=== PATIENT | female | born 1945 | race Caucasian/White ===

== ENCOUNTER 2020-04-21 05:38 | Observation (INO) ==
--- NOTE | 2020-03-19 13:01 | PAT Medication Instructions ---
Medication Instructions Date of Service March 19, 2020 Home Medications acetaminophen [Tylenol Arthritis] 1,300 mg PO Q12H aspirin [Aspir-81] 81 mg PO QAM atorvastatin 40 mg PO HS [id number]-uvc-sko-ivrw-rclu-pec [Fiber 6] 2 tab PO BID calcium carbonate-vitamin D3 [Calcium 600 + D(3)] 1 cap PO BID carvedilol 6.25 mg PO BID cetirizine [Allergy Relief (cetirizine)] 10 mg PO DAILY PRN cholecalciferol (vitamin D3) 125 mcg PO QAM multivitamin 1 cap PO QAM nitroglycerin [Nitrostat] 0.4 mg SUBLINGUAL UD PRN olmesartan 20 mg PO QAM oxybutynin chloride 5 mg PO QAM trazodone 50 mg PO HS PRN vitamin B complex 1 tab PO QAM Continue as directed nitroglycerin [Nitrostat] 0.4 mg SUBLINGUAL UD PRN DO NOT take the morning of surgery nhkr-tkk-iaq-aam-exoi-okiz-pec [Fiber 6] 2 tab PO BID calcium carbonate-vitamin D3 [Calcium 600 + D(3)] 1 cap PO BID cetirizine [Allergy Relief (cetirizine)] 10 mg PO DAILY PRN cholecalciferol (vitamin D3) 125 mcg PO QAM multivitamin 1 cap PO QAM olmesartan 20 mg PO QAM oxybutynin chloride 5 mg PO QAM vitamin B complex 1 tab PO QAM Take morning of surgery With a small sip of water, OTHERWISE NOTHING TO EAT OR DRINK AFTER MIDNIGHT: acetaminophen [Tylenol Arthritis] 1,300 mg PO Q12H (if needed, may be taken up to four hours before surgery) aspirin [Aspir-81] 81 mg PO QAM carvedilol 6.25 mg PO BID Take evening before surgery acetaminophen [Tylenol Arthritis] 1,300 mg PO Q12H atorvastatin 40 mg PO HS cgns-zab-znu-bmu-ceuh-pziy-pec [Fiber 6] 2 tab PO BID calcium carbonate-vitamin D3 [Calcium 600 + D(3)] 1 cap PO BID carvedilol 6.25 mg PO BID cetirizine [Allergy Relief (cetirizine)] 10 mg PO DAILY PRN (if needed) trazodone 50 mg PO HS PRN (if needed) Other Notes If you have any questions please call us at [phone] or [phone] or [phone] or [phone]
--- NOTE | 2020-03-22 13:35 | Anesthesiology Consultation ---
Date of Service March 22, 2020 Assessment & Plan (1) Encounter for pre-operative examination: COVID Status: As of 03/22 assessment, patient denies travel to endemic area (she did attend a large indoor wedding on 03/13 and no one wore masks, but to her knowledge no attendees have gotten sick), known exposure/sick contacts, or symptoms of COVID19. Patient instructed that they and their household members must follow strict social distancing guidelines, wear a mask in public and avoid travel for 14 days prior to surgery. She was invited to another wedding to be held 04/07, again a large group of people -- she was discouraged from attending this gathering and states she will not go. Preoperative COVID19 testing to be completed prior to surgery per surgeon's arrangements. Patient made aware to self-isolate as much as possible between COVID testing and surgery. Chart Review Chart Review: Acceptable Risk for Surgery (Pending surgeon-ordered PCP and cardio clearances and confirmed ekg) and Patient seen in Pre Admission Testing Teaching & Discussion Instructed NPO after midnight before surgery, except medications with 15 cc of water. Medication instructions provided according to the PAT guidelines. History Surgery Operation Date: 04/21/20 07:00 Proposed Procedures p left Total Knee Arthroplasty - Clinton Mcdermott DO Height/Weight Height: 5 ft 4 in Weight: 66.2 kg Allergies Allergy/AdvReac Type Severity Reaction Status Date / Time animal dander Allergy Unknown HAY FEVER Verified 03/12/20 07:50 apple Allergy Unknown NASAL Verified 03/12/20 07:50 CONGESTION banana Allergy Unknown NASAL Verified 03/12/20 07:50 CONGESTION No Known Drug Allergies Allergy Unknown NKDA Verified 03/12/20 07:50 shellfish derived Allergy Unknown NASAL Verified 03/12/20 07:50 CONGESTION tomato Allergy Unknown NASAL Verified 03/12/20 07:50 CONGESTION Medications Home Medications Medication Instructions Recorded Confirmed Last Taken acetaminophen [Tylenol Arthritis] 1,300 mg PO Q12H 03/12/20 03/12/20 Unknown aspirin [Aspir-81] 81 mg PO QAM 03/12/20 03/12/20 Unknown atorvastatin 40 mg PO HS 03/12/20 03/12/20 Unknown qbwo-kgj-nev-mjd-iwja-vndg-pec 2 tab PO BID 03/12/20 03/12/20 Unknown [Fiber 6] calcium carbonate-vitamin D3 1 cap PO BID 03/12/20 03/12/20 Unknown [Calcium 600 + D(3)] carvedilol 6.25 mg PO BID 03/12/20 03/12/20 Unknown cetirizine [Allergy Relief 10 mg PO DAILY PRN 03/12/20 03/12/20 Unknown (cetirizine)] cholecalciferol (vitamin D3) 125 mcg PO QAM 03/12/20 03/12/20 Unknown [Vitamin D3] multivitamin 1 cap PO QAM 03/12/20 03/12/20 Unknown nitroglycerin [Nitrostat] 0.4 mg SUBLINGUAL UD PRN 03/12/20 03/12/20 Unknown olmesartan 20 mg PO QAM 03/12/20 03/12/20 Unknown oxybutynin chloride 5 mg PO QAM 03/12/20 03/12/20 Unknown trazodone 50 mg PO HS PRN 03/12/20 03/12/20 Unknown vitamin B complex 1 tab PO QAM 03/12/20 03/12/20 Unknown omeprazole 20 mg PO QAM 03/22/20 03/22/20 Unknown Past Medical History Medical History CAD (coronary artery disease) s/p [place] with FILIPE x 1 to OM1 2016 GERD (gastroesophageal reflux disease) Hiatal hernia SMALL Hyperlipidemia Hypertension Increased urinary frequency Myocardial Infarction 2016 F/U DR MANUEL Osteoarthritis Syncope HX-F/U PCP, HAS HAD LOTS OF TESTING, ALL NEGATIVE-NO DIAGNOSIS, HAS BEEN MANY MONTHS SINCE SHE HAD AN INCIDENT. Exercise / Class Metabolic Activity II 4-5 Yardwork/Stairs/Walk up hill (Denies CP or SOB with 1 FOS, does at home) Past Surgical History Surgical History H/O eye surgery RIGHT MUSCLE SX History of appendectomy History of cardiac cath 1 STENT KAT DENNEY 2016 History of cataract surgery R/L History of cholecystectomy History of colonoscopy History of esophagogastroduodenoscopy (EGD) History of hysterectomy OVARIES REMAIN History of repair of rotator cuff R/L History of total knee replacement RIGHT Past Anesthesia History No Hx of Anesthesia Complications and No Family Hx of Anesthesia Complications History of PONV No Hx of PONV and No Hx of Motion Sickness Social History Smoking Status: Never smoker Do You Dip or Chew Tobacco: No Hx Alcohol Use: Yes Alcohol type: wine alcohol intake frequency: a few times a month (once per week max) Hx Substance Use: No Review of Systems Pt denies any recent chest pain, shortness of breath, palpitations, cough, fever, URI. +uncontrolled acid reflux. Physical Exam Vital Signs BP: 112/73 P: 72bpm SPO2: 96% RA T: 97.8 F R: 16 ENMT Mouth: + dental bridge (upper front teeth (5)) and + chipped teeth (one broken filling); no loose teeth Thyromental Distance: > or= 3.5 Finger Breadths Mallampati Class: II Neck normal visual inspection; neck extension not limited Respiratory normal respiratory effort Auscultation: lungs clear to auscultation bilaterally Cardiovascular Rate/Rhythm: regular rate and regular rhythm Heart Sounds: + murmur (I/) Extremities: no edema Testing Laboratory Results 03/22/20 13:39 03/22/20 13:39 PT 11.4 Seconds (9.0-12.0) 03/22/20 13:39 INR 1.1 (0.9-1.1) 03/22/20 13:39 APTT 30.9 Seconds (21.0-31.0) 03/22/20 13:39 Hemoglobin A1c 5.6 % (4.5-5.6) 03/22/20 13:39 Urine Color Yellow 03/22/20 Unknown Urine Appearance Clear (Clear) 03/22/20 Unknown Urine pH 6.5 (4.5-7.5) 03/22/20 Unknown Ur Specific [place] 1.009 (1.000-1.030) 03/22/20 Unknown Urine Protein Negative (Negative) 03/22/20 Unknown Urine Glucose (UA) Negative (Negative) 03/22/20 Unknown Urine Ketones Negative (Negative) 03/22/20 Unknown Urine Nitrite Negative (Negative) 03/22/20 Unknown Ur Leukocyte Esterase Trace (Negative) H 03/22/20 Unknown Urine WBC (Auto) 0 /hpf (0-5) 03/22/20 Unknown Urine RBC (Auto) 5-10 /hpf (0-4) H 03/22/20 Unknown U Hyaline Cast (Auto) 0 /lpf (0-5) 03/22/20 Unknown U Epithel Cells (Auto) 0-5 /lpf (0-5) 03/22/20 Unknown Urine Bacteria (Auto) Negative (Negative) 03/22/20 Unknown Blood Type O Positive 03/22/20 13:39 Antibody Screen NEGATIVE 03/22/20 13:39 Electrocardiogram Date: 03/22/20 Findings: + SB @ (57BPM) and + no change from (2016) *unconfirmed. Chest X-Ray Date: 03/22/20 Findings: + NAD Stress Test Date: 12/31/15 Type: nuclear Findings: + achieved max HR (87% MPHR) No ischemic STT wave abnormalities with stress. Rare PVCs. No chest pain. Normal dobutamine stress echocardiogram. LVH. Hypertension at rest and with stress.
--- NOTE | 2020-03-22 14:10 | XRay Report ---
XR chest Pre-admission PA/Lat HISTORY: 74 years-old Female pat preoperative exam. No acute chest complaints COMPARISON: Chest radiograph 05/01/2016 TECHNIQUE: PA and lateral views of the chest FINDINGS: Cardiomediastinal and hilar silhouettes are within normal limits. Coronary arterial stent. Calcified plaque of the thoracic aortic arch. Minimal biapical pleural-parenchymal scarring. No pneumothorax, p leural effusion, airspace consolidation or overt pulmonary edema. Degenerative changes of the shoulde rs and spine. Cholecystectomy. IMPRESSION: No acute process. ACT 112: Negative or not required by law. The above report was generated using voice recognition software. It may contain grammatical, syntax o r spelling errors. Electronically signed by: Chay Elena M.D. 03/22/2020 2:09 PM
[2020-03-22 14:33] LABS: Basophils # (auto) 0.06 K/uL (0-0.2); Basophils % (auto) 0.6 %; Eosinophils # (auto) 0.51 K/uL (0-0.5); Eosinophils % (auto) 5.4 %; Hematocrit (blood only) 43.4 % (37-47); Hemoglobin 14.6 g/dL (12.0-16.0); Immature Granulocytes # (auto) 0.03 K/uL (0.00-0.02); Immature Granulocytes % (auto) 0.3 %; Lymphocytes # (auto) 2.47 K/uL (1.2-3.4); Lymphocytes % (auto) 26.1 %; Mean Corpuscular Hemoglobin 32.4 pg (25-34); Mean Corpuscular Hgb Conc 33.6 g/dL (32-36); Mean Corpuscular Volume 96.2 fL (80-100); Mean Platelet Volume 9.6 fL (7.4-10.4); Monocytes % (auto) 7.4 %; Neutrophils # (auto) 5.71 K/uL (1.4-6.5); Neutrophils % (auto) 60.2 %; Platelet Count 368 K/uL (130-400); RDW Coefficient of Variation 12.5 % (11.5-14.5); RDW Standard Deviation 43.7 fL (36.4-46.3); Red Blood Count 4.51 M/uL (4.2-5.4); White Blood Count 9.48 K/uL (4.8-10.8)
[2020-03-22 14:39] LABS: Estimated Average Glucose 114 mg/dl; Hemoglobin A1C 5.6 % (4.5-5.6)
[2020-03-22 14:41] LABS: Albumin Level 3.6 gm/dl (3.4-5.0); BUN Creatinine Ratio 19.5 (10-20); Calcium 10.1 mg/dl (8.5-10.1); Creatinine Clr Calc Pharmacy 54.2 ml/min; Est GFR (African American) 78.8
[2020-03-22 14:45] LABS: INR 1.1 (0.9-1.1); Partial Thromboplastin Ratio 1.1; Partial Thromboplastin Time 30.9 Seconds (21.0-31.0); Prothrombin Time 11.4 Seconds (9.0-12.0)
[2020-03-22 14:56] LABS: Appearance Urine Clear (Clear); Bacteria Urine Automated Negative (Negative); Bilirubin Urine Negative (Negative); Blood Urine Trace (Negative); Cast Urine Automated 0 /lpf (0-5); Color Urine Yellow; Epithelial Cell Urine Auto 0-5 /lpf (0-5); Glucose Urine UA Negative (Negative); Ketones Urine Negative (Negative); Leukocyte Esterase Urine Trace (Negative); Nitrite Urine Negative (Negative); Protein Urine Negative (Negative); Specific Gravity Urine 1.009 (1.000-1.030); Urobilinogen Urine Negative (Negative); WBC Urine Automated 0 /hpf (0-5); pH Urine 6.5 (4.5-7.5)
--- NOTE | 2020-03-23 14:00 | History & Physical Report ---
Date of Service March 23, 2020 date of surgery: 04-21-20 procedure: left total knee replacement Assessment & Plan (1) Arthritis of knee, left: Risks and benefits of procedure discussed in detail today, patient would like to proceed with a left total knee replacement at [facility] as scheduled. will obtain cardiac clearance from Dr Fajardo prior to surgery as well as obtain PATs at [facility]. She will check with her heading repairer if ok to use Celebrex post op which really helped her last time. Will place on ASA 81mg po bid x 1 month post op, f/u 2 weeks post op for routine post-operative care and x-ray, sooner if having any problems. will make arrangements for HHPT at the time of discharge. At this point in time, has failed conservative measures and would like to proceed with surgical intervention. The risks and benefits have been discussed including, but not limited to, risk of infection, nerve injury, stiffness, loss of motion, failure to improve, etc. Reasonable outcomes and options of treatment were discussed. An explanation of appropriate alternatives to the procedure that may be advantageous were discussed and their risks and benefits, as well as the risks and benefits of not proceeding with treatment. I offered to answer any additional inquiries concerning the treatment involved. All the patient's questions were answered. The patient is agreeable, understanding of the treatment plan and alternatives, and wishes to proceed with the treatment plan. History of Present Illness Chief Complaint: left knee pain Primary Care Provider: Jazmin Mcadams [place] is a 74 year old female who complains of left knee pain, presents for pre-op evaluation prior to a left total knee replacement by dr Mcdermott at [facility]. she complains of pain, decreased range of motion, instability and stiffness in her left knee. she states that the symptoms have been chronic and non-traumatic. Currently the patient states that the symptoms are moderate-severe. The pain is described as aching, sharp and throbbing. The symptoms occur continuously. The symptoms are aggravated by ascending stairs, daily activities, first steps while awake walking. Prior NSAIDs include Ibuprofen and Aleve. she has been treated with previous cortisone and visco injections in the past without much relief. Allergies Allergy/AdvReac Type Severity Reaction Status Date / Time animal dander Allergy Unknown HAY FEVER Verified 03/12/20 07:50 apple Allergy Unknown NASAL Verified 03/12/20 07:50 CONGESTION banana Allergy Unknown NASAL Verified 03/12/20 07:50 CONGESTION No Known Drug Allergies Allergy Unknown NKDA Verified 03/12/20 07:50 shellfish derived Allergy Unknown NASAL Verified 03/12/20 07:50 CONGESTION tomato Allergy Unknown NASAL Verified 03/12/20 07:50 CONGESTION Home Medications Home Medications Medication Instructions Recorded Confirmed Type acetaminophen [Tylenol Arthritis] 1,300 mg PO Q12H 03/12/20 03/12/20 History aspirin [Aspir-81] 81 mg PO QAM 03/12/20 03/12/20 History atorvastatin 40 mg PO HS 03/12/20 03/12/20 History weic-rag-rnj-qek-edst-ypxg-pec 2 tab PO BID 03/12/20 03/12/20 History [Fiber 6] calcium carbonate-vitamin D3 1 cap PO BID 03/12/20 03/12/20 History [Calcium 600 + D(3)] carvedilol 6.25 mg PO BID 03/12/20 03/12/20 History cetirizine [Allergy Relief 10 mg PO DAILY PRN 03/12/20 03/12/20 History (cetirizine)] cholecalciferol (vitamin D3) 125 mcg PO QAM 03/12/20 03/12/20 History [Vitamin D3] multivitamin 1 cap PO QAM 03/12/20 03/12/20 History nitroglycerin [Nitrostat] 0.4 mg SUBLINGUAL UD PRN 03/12/20 03/12/20 History olmesartan 20 mg PO QAM 03/12/20 03/12/20 History oxybutynin chloride 5 mg PO QAM 03/12/20 03/12/20 History trazodone 50 mg PO HS PRN 03/12/20 03/12/20 History vitamin B complex 1 tab PO QAM 03/12/20 03/12/20 History omeprazole 20 mg PO QAM 03/22/20 03/22/20 History Past Med/Surg History Medical History CAD (coronary artery disease) s/p [place] with FILIPE x 1 to OM1 2016 GERD (gastroesophageal reflux disease) Hiatal hernia SMALL Hyperlipidemia Hypertension Increased urinary frequency Myocardial Infarction 2016 F/U DR MANUEL Osteoarthritis Syncope HX-F/U PCP, HAS HAD LOTS OF TESTING, ALL NEGATIVE-NO DIAGNOSIS, HAS BEEN MANY MONTHS SINCE SHE HAD AN INCIDENT. Surgical History H/O eye surgery RIGHT MUSCLE SX History of appendectomy History of cardiac cath 1 STENT PH ОЛЕГ 2017 History of cataract surgery R/L History of cholecystectomy History of colonoscopy History of esophagogastroduodenoscopy (EGD) History of hysterectomy OVARIES REMAIN History of repair of rotator cuff R/L History of total knee replacement RIGHT Social History Smoking Status: Never smoker Second Hand Exposure: Yes (SPOUSE SMOKED); Do You Dip or Chew Tobacco: No; Hx Alcohol Use: Yes Alcohol type: wine Hx Substance Use: No Preferred Language: Korean Communication Ability: Effective Bag Maker Required: No Beliefs That Will Affect Care: None Current Living Situation: Alone Other Information That Helps Us Care for You: No Feels Safe at Home: Yes Safety Concerns: Feels Safe At This Time Review of Systems Review of Systems: All systems reviewed & are unremarkable except as noted in HPI & below Constitutional: no fever, no chills and no sweats Respiratory: no cough and no dyspnea Cardiovascular: no chest pain, no dyspnea and no orthopnea Gastrointestinal: no abdominal pain, no nausea and no vomiting Musculoskeletal: as per Subjective / HPI Physical Exam Physical Exam: Ht: 5ft 4in Wt: 142lb BP: 128/70 Pulse: 68 Constitutional: WD/WN, vitals as above no acute distress Respiratory: normal respiratory effort, lungs clear to auscultation no respiratory distress, no labored breathing and does not use accessory muscles Cardiovascular: RRR, no murmur, no edema Gastrointestinal (Abdomen): normal bowel sounds, soft, nontender, no hepatospl enomegaly Musculoskeletal: Knee: + knee abnormal to inspection (left knee- ), + effusion (+1 effusion), + limited ROM of knee (ROM 0/5/115), + knee ROM with crepitation, + joint line tenderness (medial joint line) and + Micaela's sign positive; no deformity, no skin erythema, no ecchymosis, no valgus laxity, no varus laxity, anterior drawer test negative, Valeria's sign negative and pivot shift test negative Results & Data Results & Data ([facility]) Laboratory Results Laboratory Results WBC 9.48 K/uL (4.8-10.8) 03/22/20 13:39 RBC 4.51 M/uL (4.2-5.4) 03/22/20 13:39 Hgb 14.6 g/dL (12.0-16.0) 03/22/20 13:39 Hct 43.4 % (37-47) 03/22/20 13:39 MCV 96.2 fL (80-100) 03/22/20 13:39 MCH 32.4 pg (25-34) 03/22/20 13:39 MCHC 33.6 g/dL (32-36) 03/22/20 13:39 RDW Std Deviation 43.7 fL (36.4-46.3) 03/22/20 13:39 RDW Coeff of Isiah 12.5 % (11.5-14.5) 03/22/20 13:39 Plt Count 368 K/uL (130-400) 03/22/20 13:39 MPV 9.6 fL (7.4-10.4) 03/22/20 13:39 Immature Gran % (Auto) 0.3 % 03/22/20 13:39 Neut % (Auto) 60.2 % 03/22/20 13:39 Lymph % (Auto) 26.1 % 03/22/20 13:39 [place] % (Auto) 7.4 % 03/22/20 13:39 Eos % (Auto) 5.4 % 03/22/20 13:39 Baso % (Auto) 0.6 % 03/22/20 13:39 Neut # (Auto) 5.71 K/uL (1.4-6.5) 03/22/20 13:39 Lymph # (Auto) 2.47 K/uL (1.2-3.4) 03/22/20 13:39 [place] # (Auto) 0.70 K/uL (0.11-0.59) H 03/22/20 13:39 Eos # (Auto) 0.51 K/uL (0-0.5) H 03/22/20 13:39 Baso # (Auto) 0.06 K/uL (0-0.2) 03/22/20 13:39 Immature Gran # (Auto) 0.03 K/uL (0.00-0.02) H 03/22/20 13:39 PT 11.4 Seconds (9.0-12.0) 03/22/20 13:39 INR 1.1 (0.9-1.1) 03/22/20 13:39 APTT 30.9 Seconds (21.0-31.0) 03/22/20 13:39 PTT Ratio 1.1 03/22/20 13:39 Sodium 142 mmol/L (136-145) 03/22/20 13:39 Potassium 4.0 mmol/L (3.5-5.1) 03/22/20 13:39 Chloride 108 mmol/L (98-107) H 03/22/20 13:39 Carbon Dioxide 27 mmol/L (21-32) 03/22/20 13:39 Anion Gap 6.0 (3-11) 03/22/20 13:39 BUN 17 mg/dl (7-18) 03/22/20 13:39 Creatinine 0.84 mg/dl (0.6-1.2) 03/22/20 13:39 Est Cr Clr Drug Dosing 54.2 ml/min 03/22/20 13:39 Est GFR ( Amer) 78.8 03/22/20 13:39 Est GFR (Non-Af Amer) 68.0 03/22/20 13:39 BUN/Creatinine Ratio 19.5 (10-20) 03/22/20 13:39 Glucose 117 mg/dl (70-99) H 03/22/20 13:39 Estimat Average Glucose 114 mg/dl 03/22/20 13:39 Hemoglobin A1c 5.6 % (4.5-5.6) 03/22/20 13:39 Calcium 10.1 mg/dl (8.5-10.1) 03/22/20 13:39 Albumin 3.6 gm/dl (3.4-5.0) 03/22/20 13:39 Urine Color Yellow 03/22/20 Unknown Urine Appearance Clear (Clear) 03/22/20 Unknown Urine pH 6.5 (4.5-7.5) 03/22/20 Unknown Ur Specific [place] 1.009 (1.000-1.030) 03/22/20 Unknown Urine Protein Negative (Negative) 03/22/20 Unknown Urine Glucose (UA) Negative (Negative) 03/22/20 Unknown Urine Ketones Negative (Negative) 03/22/20 Unknown Urine Blood Trace (Negative) H 03/22/20 Unknown Urine Nitrite Negative (Negative) 03/22/20 Unknown Urine Bilirubin Negative (Negative) 03/22/20 Unknown Urine Urobilinogen Negative (Negative) 03/22/20 Unknown Ur Leukocyte Esterase Trace (Negative) H 03/22/20 Unknown Urine WBC (Auto) 0 /hpf (0-5) 03/22/20 Unknown Urine RBC (Auto) 5-10 /hpf (0-4) H 03/22/20 Unknown U Hyaline Cast (Auto) 0 /lpf (0-5) 03/22/20 Unknown U Epithel Cells (Auto) 0-5 /lpf (0-5) 03/22/20 Unknown Urine Bacteria (Auto) Negative (Negative) 03/22/20 Unknown Blood Type O Positive 03/22/20 13:39 Antibody Screen NEGATIVE 03/22/20 13:39 Diagnostic Findings Left Knee X-ray 02/20/20 confirms degenerative changes to the left knee, greatest medial compartments and patellofemoral joint, showing joint space narrowing, osteophyte formation and subchondral sclerosis. no acute bony pathology noted.
--- NOTE | 2020-03-23 21:50 | Electrocardiogram Report ---
Test Reason : Blood Pressure : / mmHG Vent. Rate : 057 BPM Atrial Rate : 057 BPM P-R Int : 172 ms QRS Dur : 084 ms QT Int : 412 ms P-R-T Axes : 073 047 051 degrees QTc Int : 401 ms Sinus bradycardia Otherwise normal ECG When compared with ECG of 28-MAY-2016 07:08, No significant change was found Confirmed by Juve Petersen ([id number]) on 03/23/2020 9:50:16 PM Referred By: Clinton Mcdermott Confirmed By:Juve Petersen
[2020-04-21] MEDS ORDERED: ACETAMINOPHEN 500 MG TAB PO SCH (06:00)
[2020-04-21] MEDS ORDERED: GABAPENTIN 300 MG CAP PO SCH (06:00)
[2020-04-21] MEDS ORDERED: TRANEXAMIC ACID 1,000 MG **IV Intra-op IV SCH (06:00)
[2020-04-21] MEDS ORDERED: dexAMETHasone 4 MG TAB PO SCH (06:00)
[2020-04-21] MEDS ORDERED: FAMOTIDINE 20 MG TAB PO SCH (06:00)
[2020-04-21] MEDS ORDERED: CEFAZOLIN 1000MG 1,000 MG/7.5 ML SYR IV SCH (06:00)
[2020-04-21] MEDS ORDERED: TRANEXAMIC ACID 1,000 MG **IV Pre-op IV SCH (06:00)
[2020-04-21] MEDS ORDERED: LR 500ML BOLUS, THEN 15ML/HR IV SCH (06:00)
[2020-04-21] MEDS ORDERED: CeleBREX 200 MG CAP PO SCH (06:00)
[2020-04-21] MEDS ORDERED: ROPIVACAINE 0.5% HCL/PF 150 MG, BUPIVACAINE 0.5% MPF 30 ML, EPINEPHrine 30MG/30ML (OR U... INSTIL SCH (06:00)
[2020-04-21] MEDS ORDERED: METOCLOPRAMIDE HCL 10 MG TABLET PO SCH (06:00)
[2020-04-21] MEDS ORDERED: BUPIVACAINE 0.5 % 5 MG/1 ML PF 10ML VIAL ONE (06:28)
[2020-04-21] MEDS ORDERED: fentaNYL citrate 100 MCG/2 ML VIAL ONE (06:39)
[2020-04-21] MEDS ORDERED: LIDOCAINE HCL 2% 2 ML VIAL/AMP(20MG/ML) INFIL ONE (06:39)
[2020-04-21] MEDS ORDERED: MIDAZOLAM HCL 1 MG/ML 2ML VIAL ONE (06:39)
[2020-04-21] MEDS ORDERED: PROPOFOL IV EMULSION 10 MG/ML 20 ML VIAL IV ONE (06:39)
--- NOTE | 2020-04-21 07:14 | History & Physical Bridge Note ---
Date of Service April 21, 2020 History & Physical Bridge Note I have examined the patient, reviewed the History & Physical and in the interval since the performance of the History & Physical I have noted the following changes of clinical significance: no changes noted
[2020-04-21] MEDS ORDERED: ORTHO JOINT ANESTHETIC ONE (07:43)
[2020-04-21] MEDS ORDERED: BACITRACIN INJ 50,000 UNIT VIAL ONE (07:43)
[2020-04-21] MEDS ORDERED: ePHEDrine sulfate 50 MG/ML AMP IV PRN (07:50)
[2020-04-21] MEDS ORDERED: ONDANSETRON INJ 2 MG/ML 2 ML VIAL IV PRN ×2 (07:50→11:21)
[2020-04-21] MEDS ORDERED: ATROPINE SULFATE 0.1 MG/ML 10ML SYR IV PRN (07:50)
[2020-04-21] MEDS ORDERED: fentaNYL citrate 100 MCG/2 ML VIAL IV PRN (07:50)
[2020-04-21] MEDS ORDERED: ePHEDrine sulfate 50 MG/ML SYR ONE (09:00)
[2020-04-21] MEDS ORDERED: PHENYLEPHRINE 100MCG/ML 5ML SYR ONE (09:00)
[2020-04-21] MEDS ORDERED: ONDANSETRON INJ 2 MG/ML 2 ML VIAL ONE (09:00)
--- NOTE | 2020-04-21 09:30 | Operative Report ---
Post Operative Report Pre & Post Diagnosis Operation Date: 04/21/20 08:20 Pre-Op Diagnosis: Osteoarthritis, Left Knee Post-Op Diagnosis: Osteoarthritis, Left Knee I identified the patient and participated in the time-out.: Yes Procedure Operation Date: 04/21/20 08:20 Actual Procedures p Left Total Knee Arthroplasty(Right) utilizing Mathews & NephStadius journey 2 patient matched total knee arthroplasty size 5 femur size 4 tibia size 10 polyethylene size 32 oval patella- Clinton Mcdermott DO Surgeon Clinton Mcdermott DO Armhole Baster Hand Ronnell BROWN Estimated Blood Loss 5 Findings Consistent with Post-Op Diagnosis Patient presents with severe end-stage DJD about the left knee no response to conservative management patient has subchondral sclerosis varus alignment marginal osteophytes eburnated [id number] moderate to large effusion subchondral cystic changes noted Specimens Bone and cartilage Anesthesia Type MAC Spinal Regional Complications none Disposition Accompanied Patient To Recovery: No Disposition: Recovery Room Indications Patient presents with severe end-stage DJD left knee no response to conservative management above intraoperative findings no time surgery. Patient is failed attempted conservative management clinic physical therapy anti-inflammatories relative rest activity modifications corticosteroid injections Visco supplementation Description of Procedure After proper prepping and draping of the left lower extremity anterior midline incision was made over the region of the extensor extensor mechanism after meticulous hemostasis was obtained and maintained in subcutaneous tissues a medial parapatellar incision was made The patella was subluxed lateralward the medial lateral gutter were cleaned from any hypertrophic synovitis and scar tissue of the distal femoral block was placed and the distal femoral osteotomy cut was made subsequently the chamfers anterior and posterior osteotomy cuts were made utilizing the 4-in-1 block the tibia was subsequently subluxed anteriorward medial and ateral meniscal remnants were excised in their entirety remnants of the anterior and posterior cruciate ligaments were excised in their entirety excellent exposure of the proximal tibia was obtained the tibial osteotomy guide was placed on the proximal tibial osteotomy cut was made once again the knee was irrigated with copious amounts of sterile saline solution the patella was subsequently everted lateralward thickened scar tissue around the patella was removed the patella was subsequently cut utilizing a freehand technique and was drilled prepared for final preparation and placement of patella socially flexion-extension gaps were checked and the equal and symmetric trials were placed to the appropriate femoral and tibial trials with poly-spacer being placed for equal flexion and extension gaps and full range of motion including extension to 0 and flexion to 140 the trial components after having b een taken to recovery range of motion was subsequently removed meticulous hemostasis was obtained and maintained subsequently a knee block injection of joint cocktail including ropivacaine 0.5% 150 mg. Bupivacaine 0.5% epinephrine 1-200,030 mL's toradol 30 mg dexamethasone 4 mg ketamine 10 mg clonidine 100 micrograms normal saline solution 30 mg was infiltrated into the soft tissues of the posterior knee medial lateral gutters and periosteal synovium special attention was paid to protect neurovascular structures at all times subsequently trial components having been removed the knee was irrigated with sterile saline solution. debris was removed the proximal tibia was subsequently prepared and was made ready for the placement of the tibial component tibial component was also cemented and tamped into position the femoral component was subsequently placed and cemented in the position the patellar component was subsequently cemented in position because hemostasis once again obtained and maintained wound having been thoroughly irrigated with debridement and debridement lavage was performed as well as a medial parapatellar incision closed with #1 Vicryl in interrupted fashion subcutaneous was closed with #2 Vicryl skin was closed with skin clips. PA-C was necessary for prepping and drapping as well as wound closure of deep fascia Sub cutaneous tissue and skin and was necessary for the case. A sterile compressive dressing was placed patient was taken to recovery in stable condition of report dictated by Baldemar I attest to the content of the Intraoperative Record and any orders documented therein. Any exceptions are noted below. I attest to the content of the Intraoperative Record and any orders documented therein. Any exceptions are noted below.
--- NOTE | 2020-04-21 10:32 | XRay Report ---
XR knee LT 1 or 2V routine CLINICAL HISTORY: Surgical Post Op COMPARISON: None. DISCUSSION: There are postsurgical changes of a total left knee arthroplasty. Femoral and tibial comp onents appear well seated. There is an overlying surgical drain. There is gas present within the soft tissues consistent with recent surgery. IMPRESSION: Postsurgical changes of a total left knee arthroplasty. ACT 112: Negative or not required by law. Electronically signed by: Aquiles Sadler M.D. 04/21/2020 10:31 AM
[2020-04-21] MEDS: SODIUM CHLORIDE 0.9% 1000ML 1,000 ML IV SCH ×2 (11:15→21:28)
[2020-04-21] MEDS ORDERED: NITROGLYCERIN SL 0.4 MG/TAB TAB SL PRN (11:21)
[2020-04-21] MEDS ORDERED: MAGNESIUM HYDROXIDE SUSP 30 ML UDC PO PRN (11:21)
[2020-04-21] MEDS ORDERED: HYDROmorphone INJ 0.5 MG/0.5 ML SYR IV PRN (11:21)
[2020-04-21] MEDS ORDERED: NALOXONE HCL 0.4 MG/1 ML VIAL/CARP IV PRN (11:21)
[2020-04-21] MEDS ORDERED: METOCLOPRAMIDE HCL INJ 5 MG/ML 2 ML VIAL IV PRN (11:21)
[2020-04-21] MEDS ORDERED: OXYCODONE HCL IR 5 MG TAB (IMMEDIATE RELEASE) PO PRN (11:21)
[2020-04-21] MEDS ORDERED: bisacodyL 10 MG SUPP PR PRN (11:21)
[2020-04-21] MEDS ORDERED: TRAZODONE HCL 50 MG TAB PO PRN (11:21)
[2020-04-21] MEDS ORDERED: CETIRIZINE HCL 10 MG TABLET PO PRN (11:33)
--- NOTE | 2020-04-21 12:39 | Anesthesiology Progress Note ---
Date of Service April 21, 2020 Anesthesia Post Procedure Vital Signs Vital Signs: Temp Pulse Pulse Resp BP BP Pulse Ox 04/21/20 12:04 67 16 137/77 95 04/21/20 11:31 69 16 145/78 H 93 04/21/20 11:05 97.7 F 79 16 166/88 H 91 04/21/20 10:40 97.5 F L 63 16 133/76 98 04/21/20 10:30 75 19 131/71 96 04/21/20 10:20 70 15 120/71 95 04/21/20 10:11 97.0 F L 82 16 137/81 98 04/21/20 07:22 64 20 155/91 H 98 04/21/20 06:19 98.6 F 63 16 178/84 H 97 04/21/20 06:04 97.7 F 66 16 166/88 H 91 Transfer of Care Handoff Completed per policy Notes Mental Status: alert / awake / arousable and participated in evaluation Patient Amnestic to Procedure: Yes Nausea / Vomiting: adequately controlled Pain: adequately controlled Airway Patency, RR, SpO2: stable & adequate BP & HR: stable & adequate Hydration State: stable & adequate Neuraxial Anesthesia: was administered and sensory block is resolving Anesthetic Complications: no major complications apparent and Pt Satisfied with anesthetic care
[2020-04-21] MEDS: ACETAMINOPHEN 500 MG TAB PO SCH ×2 (14:07→21:28)
--- NOTE | 2020-04-21 14:10 | Hospitalist Consultation ---
Date of Consultation April 21, 2020 Assessment & Plan (1) S/P TKR (total knee replacement): POD #[address] Mcdermott No complication with surgery Pain is well controlled Further management per orthopedics (2) Hyperlipidemia: Continue atorvastatin 40 mg p.o. daily No indication to check labs. Will defer management to outpatient PCP (3) Hypertension: Currently hemodynamically stable Continue carvedilol and olmesartan Continue with pain control Out of bed and ambulating per orthopedic instruction (4) CAD (coronary artery disease): Acute ID in 2017. PCI with stent placement at that time No recurrent chest pain or symptoms Hemodynamically stable Continue aspirin, statin, carvedilol, and nitroglycerin sublingual tablets as needed (5) GERD (gastroesophageal reflux disease): Continue PPI Discharge on home dose of omeprazole 20 mg p.o. daily (6) DVT prophylaxis: Continue aspirin 81 mg p.o. twice daily per orthopedics Ambulate as tolerated per orthopedics Thank you for including us in the care of this patient. We will continue to follow along with you at this time. Please refer to Dr. Sanders's addendum for further recommendations and corrections. History of Present Illness Attending Physician: Clinton Mcdermott DO History of Present Illness Attending: Dr. Sanders This is a 74-year-old female who had a total left knee arthroplasty performed today by Dr. Mcdermott. She has a past medical history of CAD with ID, hypertension, hyperlipidemia, arthritis, osteoarthritis, seasonal allergies, GERD. The patient was seen by Dr. Mcdermott in the outpatient setting with complaints of knee pain. She was set up for elective total knee arthroplasty on the left and is POD #0. She reports that she has had no recent illnesses, fever, chills, shakes. She has well-controlled hypertension. She does report a past medical history including CAD with acute ID requiring drug-eluting stents in 2017. She has not had any further issues since that time. Most of her care is provided and [facility]. She wishes to continue to follow in that area for routine needs. She denies any history of tobacco abuse, ethanol abuse, substance abuse. She is typically very very active. She has no acute complaints. Pain is well controlled. Allergies Allergy/AdvReac Type Severity Reaction Status Date / Time animal dander Allergy Unknown HAY FEVER Verified 04/21/20 06:25 apple Allergy Unknown NASAL Verified 04/21/20 06:25 CONGESTION banana Allergy Unknown NASAL Verified 04/21/20 06:25 CONGESTION No Known Drug Allergies Allergy Unknown NKDA Verified 04/21/20 06:25 shellfish derived Allergy Unknown NASAL Verified 04/21/20 06:25 CONGESTION tomato Allergy Unknown NASAL Verified 04/21/20 06:25 CONGESTION Home Medications Home Medications Medication Instructions Recorded Confirmed Type acetaminophen [Tylenol Arthritis] 1,300 mg PO Q12H 03/12/20 04/21/20 History aspirin [Aspir-81] 81 mg PO QAM 03/12/20 04/21/20 History atorvastatin 40 mg PO HS 03/12/20 04/21/20 History baba-onl-edh-jjn-uuvs-sshl-pec 2 tab PO BID 03/12/20 04/21/20 History [Fiber 6] calcium carbonate-vitamin D3 1 cap PO BID 03/12/20 04/21/20 History [Calcium 600 + D(3)] carvedilol 6.25 mg PO BID 03/12/20 04/21/20 History cetirizine [Allergy Relief 10 mg PO DAILY PRN 03/12/20 04/21/20 History (cetirizine)] cholecalciferol (vitamin D3) 125 mcg PO QAM 03/12/20 04/21/20 History [Vitamin D3] multivitamin 1 cap PO QAM 03/12/20 04/21/20 History nitroglycerin [Nitrostat] 0.4 mg SUBLINGUAL UD PRN 03/12/20 04/21/20 History olmesartan 20 mg PO QAM 03/12/20 04/21/20 History trazodone 50 mg PO HS PRN 03/12/20 04/21/20 History vitamin B complex 1 tab PO QAM 03/12/20 04/21/20 History omeprazole 20 mg PO QAM 03/22/20 04/21/20 History oxybutynin chloride [Ditropan XL] 10 mg PO DAILY 04/21/20 04/21/20 History Patient History Medical History CAD (coronary artery disease) s/p ID with FILIPE x 1 to OM1 2016 GERD (gastroesophageal reflux disease) Hiatal hernia SMALL Hyperlipidemia Hypertension Increased urinary frequency Myocardial Infarction 2017 F/U DR ROWAN-ОЛЕГ Osteoarthritis Syncope HX-F/U PCP, HAS HAD LOTS OF TESTING, ALL NEGATIVE-NO DIAGNOSIS, HAS BEEN MANY MONTHS SINCE SHE HAD AN INCIDENT. Surgical History H/O eye surgery RIGHT MUSCLE SX History of appendectomy History of cardiac cath 1 STENT PH ОЛЕГ 2017 History of cataract surgery R/L History of cholecystectomy History of colonoscopy History of esophagogastroduodenoscopy (EGD) History of hysterectomy OVARIES REMAIN History of repair of rotator cuff R/L History of total knee replacement RIGHT Social History Smoking Status: Never smoker Second Hand Exposure: Yes (SPOUSE SMOKED); Do You Dip or Chew Tobacco: No; Hx Alcohol Use: Yes Alcohol type: wine Hx Substance Use: No Preferred Language: Serbian Communication Ability: Effective Mail Distribution Scheme Examiner Required: No Beliefs That Will Affect Care: None marital status: / Current Living Situation: Alone Other Information That Helps Us Care for You: No Feels Safe at Home: Yes Safety Concerns: Feels Safe At This Time Assistive Devices: Brace/Splint/Immobilizer and Glasses Assistive Devices Comment: BRACE PRN Review of Systems Review of Systems: All systems reviewed & are unremarkable except as noted in HPI & below Physical Exam Physical Exam: GENERAL : No acute distress EYES: No icterus, gaze conjugate NOSE: No evidence of epistaxis MOUTH: No lesions or candidiasis NECK: Supple LUNGS: CTA B/L, no wheezes, rales or rhonchi HEART: Regular, rate controlled ABDOMEN: Soft, NT, ND, BS Present EXTREMITIES: No LE edema, pedal pulses intact and equal bilaterally. Left leg is dressed from the hip down to the toes. With palpation, patient states that sensation is beginning to return but no significant pain. Feet are warm to the touch NEURO: A&OX3 Results & Data Results & Data ([facility]) Vital Signs (Past 12 Hours) Vital Signs Temp Pulse Pulse Resp BP BP Pulse Ox 04/21/20 13:05 36.3 C L 63 14 148/79 H 94 04/21/20 12:04 67 16 137/77 95 04/21/20 11:31 69 16 145/78 H 93 04/21/20 11:05 36.5 C 79 16 166/88 H 91 04/21/20 10:40 36.4 C L 63 16 133/76 98 04/21/20 10:30 75 19 131/71 96 04/21/20 10:20 70 15 120/71 95 04/21/20 10:11 36.1 C L 82 16 137/81 98 04/21/20 07:22 64 20 155/91 H 98 04/21/20 06:19 37 C 63 16 178/84 H 97 04/21/20 06:04 36.5 C 66 16 166/88 H 91 Laboratory Results 03/22/20 13:39 03/22/20 13:39 Diagnostic Findings XR knee LT 1 or 2V routine CLINICAL HISTORY: Surgical Post Op COMPARISON: None. DISCUSSION: There are postsurgical changes of a total left knee arthroplasty. Femoral and tibial components appear well seated. There is an overlying surgical drain. There is gas present within the soft tissues consistent with recent surgery. IMPRESSION: Postsurgical changes of a total left knee arthroplasty. ACT 112: Negative or not required by law. Electronically signed by: Aquiles Sadler M.D. 04/21/2020 10:31 AM XR chest Pre-admission PA/Lat HISTORY: 74 years-old Female pat preoperative exam. No acute chest complaints COMPARISON: Chest radiograph 05/01/2016 TECHNIQUE: PA and lateral views of the chest FINDINGS: Cardiomediastinal and hilar silhouettes are within normal limits. Coronary arterial stent. Calcified plaque of the thoracic aortic arch. Minimal biapical pleural-parenchymal scarring. No pneumothorax, pleural effusion, airspace consolidation or overt pulmonary edema. Degenerative changes of the shoulders and spine. Cholecystectomy. IMPRESSION: No acute process. ACT 112: Negative or not required by law. The above report was generated using voice recognition software. It may contain grammatical, syntax or spelling errors. Electronically signed by: Chay Elena M.D. 03/22/2020 2:09 PM PG Care Time/CCT Total # of Minutes Spent Total Time Spent with Patient: Total time spent is greater than 50% in school community relations coordinator rdination of care (as documented) at patient's floor/unit and/or counseling patient: Coding Level of Care Code 04714 Inpt Consult Level 3 Diagnoses S/P TKR (total knee replacement) Z96.652 Laterality: left Hyperlipidemia E78.5 Hyperlipidemia type: unspecified Hypertension I10 Hypertension type: essential hypertension CAD (coronary artery disease) I25.10 Coronary Disease-Associated Artery/Lesion type: [place] artery [place] vs. transplanted heart: [place] heart Associated angina: without angina GERD (gastroesophageal reflux disease) K21.9 Esophagitis presence: without esophagitis DVT prophylaxis Z29.9 Time Spent (min) 35 (1) S/P TKR (total knee replacement) Laterality: left Qualified Code(s): Z96.652 - Presence of left artificial kn ee joint (2) Hyperlipidemia Hyperlipidemia type: unspecified Qualified Code(s): E78.5 - Hyperlipidemia, unspecified (3) Hypertension Hypertension type: essential hypertension Qualified Code(s): I10 - Essential (primary) hypertension (4) CAD (coronary artery disease) Coronary Disease-Associated Artery/Lesion type: [place] artery [place] vs. tra nsplanted heart: [place] heart Associated angina: without angina Qualified Code(s): I25.10 - Atherosclerotic heart disease of [place] coronary artery without angina pectoris (5) GERD (gastroesophageal reflux disease) Esophagitis presence: without esophagitis Qualified Code(s): K21.9 - Gastro- esophageal reflux disease without esophagitis
[2020-04-21] MEDS: CEFAZOLIN 1000MG 1,000 MG/7.5 ML SYR IV SCH (16:58)
[2020-04-21] MEDS: FERROUS GLUCONATE 324 MG TAB PO SCH (17:55)
[2020-04-21] MEDS: DOCUSATE SODIUM 100 MG CAP PO SCH (20:13)
[2020-04-21] MEDS: carvediloL 6.25 MG TAB PO SCH (20:13)
[2020-04-21] MEDS: ASPIRIN 81 MG ECTAB PO SCH (20:13)
[2020-04-21] MEDS ORDERED: SENNA 8.6 MG TAB PO SCH (21:00)
[2020-04-21] MEDS ORDERED: ATORVASTATIN 40 MG TAB PO SCH (21:00)
[2020-04-22] MEDS: CEFAZOLIN 1000MG 1,000 MG/7.5 ML SYR IV SCH
[2020-04-22] MEDS: ACETAMINOPHEN 500 MG TAB PO SCH ×2 (05:51→14:43)
[2020-04-22] MEDS ORDERED: OXYCODONE HCL 10 MG TABCR (OXYCONTIN) PO SCH (06:00)
[2020-04-22 06:38] LABS: Hematocrit (blood only) 36.2 % (37-47); Hemoglobin 12.6 g/dL (12.0-16.0); Mean Corpuscular Hemoglobin 33.3 pg (25-34); Mean Corpuscular Hgb Conc 34.8 g/dL (32-36); Mean Corpuscular Volume 95.8 fL (80-100); Mean Platelet Volume 9.8 fL (7.4-10.4); Platelet Count 291 K/uL (130-400); RDW Coefficient of Variation 12.4 % (11.5-14.5); RDW Standard Deviation 43.2 fL (36.4-46.3); Red Blood Count 3.78 M/uL (4.2-5.4); White Blood Count 18.62 K/uL (4.8-10.8)
[2020-04-22 07:06] LABS: Calcium 8.4 mg/dl (8.5-10.1); Est GFR (African American) 78.8; Potassium 4.1 mmol/L (3.5-5.1)
--- NOTE | 2020-04-22 08:22 | Anesthesiology Progress Note ---
Date of Service April 22, 2020 Anesthesia Post Procedure Vital Signs Vital Signs: Temp Pulse Pulse Pulse Resp BP Pulse Ox 04/22/20 07:44 36.7 C 54 L 16 105/56 L 95 04/22/20 03:33 36.7 C 60 16 125/71 96 04/21/20 23:40 36.6 C 58 L 16 120/70 94 04/21/20 19:14 36.4 C L 58 L 16 119/70 95 04/21/20 15:47 36.4 C L 61 20 120/71 92 04/21/20 14:05 36.3 C L 76 14 121/71 98 04/21/20 13:05 36.3 C L 63 14 148/79 H 94 04/21/20 12:04 67 16 137/77 95 04/21/20 11:31 69 16 145/78 H 93 04/21/20 11:05 36.5 C 79 16 166/88 H 91 04/21/20 10:40 36.4 C L 63 16 133/76 98 04/21/20 10:30 75 19 131/71 96 04/21/20 10:20 70 15 120/71 95 04/21/20 10:11 36.1 C L 82 16 137/81 98 Pain Intensity Left Knee: Pain Intensity: 0 Notes Mental Status: alert / awake / arousable and participated in evaluation Patient Amnestic to Procedure: Yes Nausea / Vomiting: adequately controlled Pain: adequately controlled Airway Patency, RR, SpO2: stable & adequate BP & HR: stable & adequate Hydration State: stable & adequate Neuraxial Anesthesia: was administered and sensory block resolved Anesthetic Complications: no major complications apparent and Pt Satisfied with anesthetic care
--- NOTE | 2020-04-22 08:57 | Orthopedic Progress Note ---
Date of Service April 22, 2020 Assessment & Plan (1) Arthritis of knee, left: Postop day status post left total knee arthroplasty. PT/OT protocols. Weightbearing as tolerated. DVT prophylaxis with aspirin p.o. twice daily, NIKO Davies. Pain management as written. Leukocytosis-patient asymptomatic at this time. Denies burning on urination increased cough or sputum production etc. Likely due to preoperative steroids and surgical stress. DC planning-patient to discuss with case management the possibility of home health versus outpatient PT. She was initially thinking outpatient PT however would like to go over the options again. Admission and Anticipated Discharge Date Admission Date: April 21, 2020 Subjective Patient currently sitting up in bed. No complaints this morning. Pain is controlled. Denies shortness of breath, chest pain, lightheadedness. Pt wanted to discuss discharge plans again. Thinking about Home PT. Physical Exam Physical Exam: Dressings are clean, dry, and intact. Calves are soft nontender. Neurovascular is intact. Toes are mobile. She had approximately 75 mL's from the previous shift on her Hemovac drainage. Results & Data ([facility]) Vital Signs (Past 12 Hours) Vital Signs Temp Pulse Resp BP Pulse Ox 04/22/20 07:44 36.7 C 54 L 16 105/56 L 95 04/22/20 03:33 36.7 C 60 16 125/71 96 04/21/20 23:40 36.6 C 58 L 16 120/70 94 Laboratory Results Laboratory Results WBC 18.62 K/uL (4.8-10.8) H 04/22/20 05:34 RBC 3.78 M/uL (4.2-5.4) L 04/22/20 05:34 Hgb 12.6 g/dL (12.0-16.0) 04/22/20 05:34 Hct 36.2 % (37-47) L 04/22/20 05:34 MCV 95.8 fL (80-100) 04/22/20 05:34 MCH 33.3 pg (25-34) 04/22/20 05:34 MCHC 34.8 g/dL (32-36) 04/22/20 05:34 RDW Std Deviation 43.2 fL (36.4-46.3) 04/22/20 05:34 RDW Coeff of Isiah 12.4 % (11.5-14.5) 04/22/20 05:34 Plt Count 291 K/uL (130-400) 04/22/20 05:34 MPV 9.8 fL (7.4-10.4) 04/22/20 05:34 Immature Gran % (Auto) 0.3 % 03/22/20 13:39 Neut % (Auto) 60.2 % 03/22/20 13:39 Lymph % (Auto) 26.1 % 03/22/20 13:39 [place] % (Auto) 7.4 % 03/22/20 13:39 Eos % (Auto) 5.4 % 03/22/20 13:39 Baso % (Auto) 0.6 % 03/22/20 13:39 Neut # (Auto) 5.71 K/uL (1.4-6.5) 03/22/20 13:39 Lymph # (Auto) 2.47 K/uL (1.2-3.4) 03/22/20 13:39 [place] # (Auto) 0.70 K/uL (0.11-0.59) H 03/22/20 13:39 Eos # (Auto) 0.51 K/uL (0-0.5) H 03/22/20 13:39 Baso # (Auto) 0.06 K/uL (0-0.2) 03/22/20 13:39 Immature Gran # (Auto) 0.03 K/uL (0.00-0.02) H 03/22/20 13:39 PT 11.4 Seconds (9.0-12.0) 03/22/20 13:39 INR 1.1 (0.9-1.1) 03/22/20 13:39 APTT 30.9 Seconds (21.0-31.0) 03/22/20 13:39 PTT Ratio 1.1 03/22/20 13:39 Sodium 142 mmol/L (136-145) 04/22/20 05:34 Potassium 4.1 mmol/L (3.5-5.1) 04/22/20 05:34 Chloride 112 mmol/L (98-107) H 04/22/20 05:34 Carbon Dioxide 24 mmol/L (21-32) 04/22/20 05:34 Anion Gap 6.0 (3-11) 04/22/20 05:34 BUN 21 mg/dl (7-18) H 04/22/20 05:34 Creatinine 0.84 mg/dl (0.6-1.2) 04/22/20 05:34 Est Cr Clr Drug Dosing 50.0 ml/min 04/22/20 05:34 Est GFR ( Amer) 78.8 04/22/20 05:34 Est GFR (Non-Af Amer) 68.0 04/22/20 05:34 BUN/Creatinine Ratio 25.0 (10-20) H 04/22/20 05:34 Glucose 128 mg/dl (70-99) H 04/22/20 05:34 Estimat Average Glucose 114 mg/dl 03/22/20 13:39 Hemoglobin A1c 5.6 % (4.5-5.6) 03/22/20 13:39 Calcium 8.4 mg/dl (8.5-10.1) L 04/22/20 05:34 Albumin 3.6 gm/dl (3.4-5.0) 03/22/20 13:39 Urine Color Yellow 03/22/20 Unknown Urine Appearance Clear (Clear) 03/22/20 Unknown Urine pH 6.5 (4.5-7.5) 03/22/20 Unknown Ur Specific [place] 1.009 (1.000-1.030) 03/22/20 Unknown Urine Protein Negative (Negative) 03/22/20 Unknown Urine Glucose (UA) Negative (Negative) 03/22/20 Unknown Urine Ketones Negative (Negative) 03/22/20 Unknown Urine Blood Trace (Negative) H 03/22/20 Unknown Urine Nitrite Negative (Negative) 03/22/20 Unknown Urine Bilirubin Negative (Negative) 03/22/20 Unknown Urine Urobilinogen Negative (Negative) 03/22/20 Unknown Ur Leukocyte Esterase Trace (Negative) H 03/22/20 Unknown Urine WBC (Auto) 0 /hpf (0-5) 03/22/20 Unknown Urine RBC (Auto) 5-10 /hpf (0-4) H 03/22/20 Unknown U Hyaline Cast (Auto) 0 /lpf (0-5) 03/22/20 Unknown U Epithel Cells (Auto) 0-5 /lpf (0-5) 03/22/20 Unknown Urine Bacteria (Auto) Negative (Negative) 03/22/20 Unknown Blood Type O Positive 03/22/20 13:39 Antibody Screen NEGATIVE 03/22/20 13:39
[2020-04-22] MEDS ORDERED: PANTOprazole 40 MG TAB PO SCH (09:00)
[2020-04-22] MEDS ORDERED: OLMESARTAN MEDOXOMIL 20 MG TAB PO SCH (09:00)
[2020-04-22] MEDS ORDERED: OXYBUTYNIN CHLORIDE XL 5 MG TABCR PO SCH (09:00)
[2020-04-22] MEDS ORDERED: MULTIVITAMIN TAB PO SCH (09:00)
[2020-04-22] MEDS: FERROUS GLUCONATE 324 MG TAB PO SCH (09:51)
[2020-04-22] MEDS: DOCUSATE SODIUM 100 MG CAP PO SCH (09:51)
[2020-04-22] MEDS: ASPIRIN 81 MG ECTAB PO SCH (09:51)
[2020-04-22] MEDS: carvediloL 6.25 MG TAB PO SCH (09:51)
--- NOTE | 2020-04-22 14:21 | Hospitalist Progress Note ---
Date of Service April 22, 2020 Assessment & Plan (1) S/P TKR (total knee replacement): POD #1 - s/p left TKR. doing well medically and orthopedically. DVT proph - asa 81mg BID. labs acceptable today. eating well. to be d/c today by primary ortho team. (2) Hypertension: BPs low-normal today. I held her AM olmesartan. I had a lengthy discussion with her regarding her ARB. Recommending she hold the olmesartan at discharge. Ok to continue coreg BID. she has BP cuff at home. recommended BID BP checks. once systolics start to rise to the 130s or higher she may resume her olmesartan. she voiced understanding. recommendations/instructions placed in d/c instructions. f/u PCP for any other issues. (3) Hyperlipidemia: cont statin (4) CAD (coronary artery disease): h/o LA, s/p stenting at [facility] cont asa, statin, BB ultimately resume ARB no ischemic symptoms at this time (5) GERD (gastroesophageal reflux disease): no issues cont PPI (6) Leukocytosis: received 8mg of decadron perioperatively yesterday. leukocytosis likely 2nd to such. afebrile, no signs/symptoms of any infectious process. perioperative stress also can contribute. from medical standpoint she is stable and acceptable for discharge. (7) DVT prophylaxis: asa 81mg BID cont PPI for GI prophy Admission and Anticipated Discharge Date Admission Date: April 21, 2020 Subjective patient hopeful for d/c today. she denies dyspnea, dyspnea on exertion, chest pain, abd pain, nausea, emesis. eating well. passing flatus; no BM yet. no dizziness. left knee pain is manageable. Review of Systems Constitutional: no fatigue and no anorexia Respiratory: no cough Cardiovascular: no chest pain Gastrointestinal: no abdominal pain Physical Exam Constitutional: well developed and well nourished; no acute distress and no altered mental status ENMT: external ear and nose normal, oropharynx normal Respiratory: normal respiratory effort, lungs clear to auscultation Cardiovascular: Rate/Rhythm: regular rate and regular rhythm Heart Sounds: normal S1 and normal S2; no murmur Vessels: posterior tibial pulses present and dorsalis pedis pulses present; no JVD Extremities: + edema (minimal - left ankle ) Gastrointestinal (Abdomen): normal bowel sounds, soft, nontender, no hepatosplenomegaly Musculoskeletal: left knee dressings in place Psychiatric: A+Ox3, euthymic affect Results & Data Results & Data ([facility]) Vital Signs (Past 12 Hours) Vital Signs Temp Pulse Resp BP Pulse Ox 04/22/20 07:44 36.7 C 54 L 16 105/56 L 95 04/22/20 03:33 36.7 C 60 16 125/71 96 Laboratory Results Laboratory Results - last 24 hr 04/22/20 04/22/20 05:34 05:34 WBC 18.62 H RBC 3.78 L Hgb 12.6 Hct 36.2 L MCV 95.8 MCH 33.3 MCHC 34.8 RDW Std Deviation 43.2 RDW Coeff of Isiah 12.4 Plt Count 291 MPV 9.8 Sodium 142 Potassium 4.1 Chloride 112 H Carbon Dioxide 24 Anion Gap 6.0 BUN 21 H Creatinine 0.84 Est Cr Clr Drug Dosing 50.0 Est GFR ( Amer) 78.8 Est GFR (Non-Af Amer) 68.0 BUN/Creatinine Ratio 25.0 H Glucose 128 H Calcium 8.4 L PG Care Time/CCT Total # of Minutes Spent Total Time Spent with Patient: Total time spent is greater than 50% in coordination of care (as documented) at patient's floor/unit and/or counseling patient: Coding Level of Care Code 06932 Subseq Hosp Care Lvl 2 Diagnoses S/P TKR (total knee replacement) Z96.652 Laterality: left Hypertension I10 Hypertension type: essential hypertension Hyperlipidemia E78.5 Hyperlipidemia type: unspecified CAD (coronary artery disease) I25.10 Coronary Disease-Associated Artery/Lesion type: [place] artery [place] vs. transplanted heart: [place] heart Associated angina: without angina GERD (gastroesophageal reflux disease) K21.9 Esophagitis presence: without esophagitis Leukocytosis D72.829 DVT prophylaxis Z29.9 (1) S/P TKR (total knee replacement) Laterality: left Qualified Code(s): Z96.652 - Presence of left artificial knee joint (2) Hypertension Hypertension type: essential hypertension Qualified Code(s): I10 - Essential (primary) hypertension (3) Hyperlipidemia Hyperlipidemia type: unspecified Qualified Code(s): E78.5 - Hyperlipidemia, unspecified (4) CAD (coronary artery disease) Coronary Disease-Associated Artery/Lesion type: [place] artery [place] vs. transplanted heart: [place] heart Associated angina: without angina Qualified Code(s): I25.10 - Atherosclerotic heart disease of [place] coronary artery without angina pectoris (5) GERD (gastroesophageal reflux disease) Esophagitis presence: without esophagitis Qualified Code(s): K21.9 - Gastro- esophageal reflux disease without esophagitis
--- NOTE | 2020-04-23 11:11 | Discharge Summary ---
Date of Service April 23, 2020 Admission HPI Per Admitting Provider Shasta is a 74 year old female who complains of left knee pain, presents for pre- op evaluation prior to a left total knee replacement by dr Mcdermott at [facility]. she complains of pain, decreased range of motion, instability and stiffness in her left knee. she states that the symptoms have been chronic and non-traumatic. Currently the patient states that the symptoms are moderate-severe. The pain is described as aching, sharp and throbbing. The symptoms occur continuously. The symptoms are aggravated by ascending stairs, daily activities, first steps while awake walking. Prior NSAIDs include Ibuprofen and Aleve. she has been treated with previous cortisone and visco injections in the past without much relief. Admission Exam Per Admitting Provider Physical Exam: Ht: 5ft 4in Wt: 142lb BP: 128/70 Pulse: 68 Constitutional: WD/WN, vitals as above no acute distress Respiratory: normal respiratory effort, lungs clear to auscultation no respiratory distress, no labored breathing and does not use accessory muscles Cardiovascular: RRR, no murmur, no edema Gastrointestinal (Abdomen): normal bowel sounds, soft, nontender, no hepato splenomegaly Musculoskeletal: Knee: + knee abnormal to inspection (left knee- ), + effusion (+1 effusion), + limited ROM of knee (ROM 0/5/115), + knee ROM with crepitation, + joint line tenderness (medial joint line) and + Micaela's sign positive; no deformity, no skin erythema, no ecchymosis, no valgus laxity, no varus laxity, anterior drawer test negative, Valeria's sign negative and pivot shift test negative Principal Diagnosis Left knee DJD Discharge Exam Addendum (Blank) Addendum April 22, 2020 12:28 Progressing well with PT. Pain controlled. VSS. Plan for dc to home today with services. Addendum Signed By:<Electronically signed by Ronnell Tavarez PA-C>04/22/201228 Addendum Cosigned By:<Electronically signed by Micky De Dios M.D.>04/22/20 1610 Created: 04/22/2008/11/1228 Date of Service April 22, 2020 Assessment & Plan (1) Arthritis of knee, left: Postop day status post left total knee arthroplasty. PT/OT protocols. Weightbearing as tolerated. DVT prophylaxis with aspirin p.o. twice daily, SCDs, NIKO moore. Pain management as written. Leukocytosis-patient asymptomatic at this time. Denies burning on urination increased cough or sputum production etc. Likely due to preoperative steroids and surgical stress. DC planning-patient to discuss with case management the possibility of home health versus outpatient PT. She was initially thinking outpatient PT however would like to go over the options again. Admission and Anticipated Discharge Date Admission Date: April 21, 2020 Subjective Patient currently sitting up in bed. No complaints this morning. Pain is controlled. Denies shortness of breath, chest pain, lightheadedness. Pt wanted to discuss discharge plans again. Thinking about Home PT. Physical Exam Physical Exam: Dressings are clean, dry, and intact. Calves are soft nontender. Neurovascular is intact. Toes are mobile. She had approximately 75 mL's from the previous shift on her Hemovac drainage. Results & Data ([facility]) Vital Signs (Past 12 Hours) Vital Signs Temp Pulse Resp BP Pulse Ox 04/22/20 07:44 36.7 C 54 L 16 105/56 L 95 04/22/20 03:33 36.7 C 60 16 125/71 96 04/21/20 23:40 36.6 C 58 L 16 120/70 94 Laboratory Results Laboratory Results WBC 18.62 K/uL (4.8-10.8) H 04/22/20 05:34 RBC 3.78 M/uL (4.2-5.4) L 04/22/20 05:34 Hgb 12.6 g/dL (12.0-16.0) 04/22/20 05:34 Hct 36.2 % (37-47) L 04/22/20 05:34 Discharge Data Allergies Allergy/AdvReac Type Severity Reaction Status Date / Time animal dander Allergy Unknown HAY FEVER Verified 04/21/20 06:25 apple Allergy Unknown NASAL Verified 04/21/20 06:25 CONGESTION banana Allergy Unknown NASAL Verified 04/21/20 06:25 CONGESTION No Known Drug Allergies Allergy Unknown NKDA Verified 04/21/20 06:25 shellfish derived Allergy Unknown NASAL Verified 04/21/20 06:25 CONGESTION tomato Allergy Unknown NASAL Verified 04/21/20 06:25 CONGESTION Consultations 04/21/20 11:21 Consult Case Management - Discharge Planning Routine Consult Hospitalist Routine Procedures Performed Operation Date: 04/21/20 08:20 Actual Procedures p Left Total Knee Arthroplasty(Right) - Clinton Mcdermott DO Ordered Studies 04/21/20 05:00 US - OR guided needle placemen Routine Hospital Course (1) Arthritis of knee, left: Patient was admitted on the above-noted date and had the above-noted surgery performed which she tolerated well. Medical consultation was ordered for medical management during her stay. They continue to follow patient until her discharge. On her first postoperative day, she had no complaints and pain was controlled. Dressings were clean, dry, and intact. Calves are soft n ontender. Neurovascular is intact. Toes are mobile. Vital signs remaining stable. She was started on PT and OT protocols and continued on DVT prophylaxis and pain management. She was noted to have leukocytosis but was asymptomatic and was felt to be secondary to preoperative steroids and surgical stress. Hemoglobin was 12.6. She progressed well with her physical therapy and was remaining medically stable. Hospitalist service felt that she was stable for discharge. Plans were for repeat CBC to recheck her white count In several days. She was thusly discharged home on 04/22/2020. Total Time Total Time Spent Total Time Spent (In Minutes): 5 Discharge Plan Discharge Items Patient Disposition: Home - Home Health Services Reason For Visit: Osteoarthritis, Left Knee Discharge Diagnosis: Osteoarthritis, Left Knee Activity: Per Instructions section Weightbearing: Left weightbearing Weightbearing Comment: as tolerated Non-emergency contact: Surgeon Call non-emergency contact if: your pain is not controlled, your temperature is above 101.5, your wound has increased redness and your wound has increased drainage Follow-up/Referrals: Jazmin Mcadams M.D. [Primary Care Provider] - Diet: Heart Healthy Ambulatory Orders: Complete Blood Count with Diff (Routine) Timeframe: 3 Days Location: Determined by Patient Ordered By: Ronnell Jeffries Attending Provider Instructions: ACTIVITY RECOMMENDATIONS: SELF CARE INSTRUCTIONS AFTER TOTAL KNEE REPLACEMENT A. You may need to continue a physical therapy program after discharge from the hospital. There are several options available to you. Your doctor will assist you in selecting the best one for you. 1. An out-patient facility 2 to 3 times a week for therapy or home therapy. 2. Continue working on all exercises taught to you in the hospital. Your goals should be to increase bending of your knee to 90 degrees and beyond and to fully straighten your knee. B. You may progress at your own pace from walking with a walker or crutches to a cane; then to no assistive devices. C. Make walking a part of your daily routine. Be up as much as comfortable with rest periods throughout the day. Rest with leg elevation is very important. Use the ice wrap frequently for the first 3-4 weeks. D. There are no restrictions on activities. You may ride in a car, shop, participate in phys assistant and all social activities. E. Wear the long elastic stockings (NIKO hose) 20 hours a day for 2 weeks after surgery. They can be removed several times a day for laundering and for a bath. F. You may shower, no tub baths until cleared by your doctor. SPECIAL CARE INSTRUCTIONS: VERY IMPORTANT TO READ AND REVIEW A. There are a few signs you need to watch for after you are home. Call [facility] if you notice any of the followin. Increased severe knee pain. Some pain is expected especially when you exercise. 2. Increased swelling in your leg or knee; pain or swelling of the calf muscle in either lower leg. 3. Any fluid drainage from the incision. 4. Shortness of breath or chest pain. B. Please call [facility] at if you have any concerns or questions about your operation or recovery. The doctor or his nurse will return your call promptly. C. You must take antibiotics before dental work, bladder, bowel or other surgery. Your doctor will provide you with a permanent care to carry describing this precaution. IMPORTANT: * REMEMBER TO TAKE ASPIRIN, 81 MG, TWICE DAILY FOR 4 WEEKS UNLESS OTHERWISE DIRECTED. THIS IS YOUR BLOOD THINNER. * HIGH RISK PATIENTS MAY BE PRESCRIBED A STRONGER BLOOD THINNER. THIS WILL BE PROVIDED AT DISCHARGE. * CALL IF INCREASED PAIN, REDNESS, DRAINAGE OR FEVER GREATER THAT 101. * WEAR NIKO HOSE 20 HOURS PER DAY FOR 2 WEEKS. * DERMABOND Prineo- This is a mesh tape dressing that is covered with glue. It should remain in place until the incision is properly healed, usually 10-14 days. This dressing is designed to naturally slough off. You may trim the excess mesh tape as it peels off. Incision may be briefly wet in a shower. Dry immediately by blotting with a clean, dry towel. Do not bath or swim until instructed by your doctor. Do not scratch, rub, or pick at the dressing. Do not apply any topical ointments or lotions until dressing is completely removed and/or instructed by your doctor. There may be a small piece of suture material at one end of your incision. Do not pull or trim this. If it is bothersome or catching on clothing, you may cover it with a band-aid. Call your doctor with any questions about your dressing. . FOLLOW UP VISIT: If appointment is not already scheduled: Please call [facility] to make a follow-up appointment for 2 weeks after your surgery at . [employer]tl [employer] Provider Instructions: From Clement Cowart Hospitalist -- Please HOLD your Olmesartan at time of discharge. It is not unusual to have to hold 1 or more blood pressure medications in the face of surgery and blood loss from surgery. I would recommend checking your blood pressures twice daily at home over the next week. Once the systolic blood pressure (top number) climbs into the 130s or higher you can resume the Olmesartan. It is ok to continue your carvedilol upon return home today. If you have ongoing issues with constipation you may need to add [id number] miralax and/or senna (senakot). Please remember that the oxycodone pain medication WILL cause constipation issues. For any blood pressure issues, constipation, etc please contact your family doctor. Best wishes for a speedy recovery, Dr Cowart Stand-Alone Forms: My [facility], Smoking Cessation Medications and DC Order Prescriptions: New aspirin 81 mg Tablet,Delayed Release (Dr/Ec) 81 mg PO BID 30 Days Qty: 60 RF: 0 acetaminophen 500 mg Tablet 1,000 mg PO Q8 14 Days Qty: 84 RF: 0 polyethylene glycol 3350 [Miralax] 17 gram powder in packet 17 g PO DAILY PRN (Reason: constipation) Qty: 5 RF: 0 oxycodone 5 mg Tablet 5 mg PO Q4H MDD 6 PRN (Reason: pain) Qty: 30 RF: 0 cefadroxil 500 mg capsule 500 mg PO BID Qty: 14 RF: 0 Continued vitamin B complex Tablet 1 tab PO QAM RF: 0 multivitamin Capsule 1 cap PO QAM RF: 0 Calcium 600 + D(3) 600 mg calcium- 200 unit Capsule 1 cap PO BID RF: 0 cholecalciferol (vitamin D3) [Vitamin D3] 125 mcg (5,000 unit) Tablet 125 mcg PO QAM RF: 0 Fiber 6 1,000 mg Tablet 2 tab PO BID RF: 0 atorvastatin 40 mg Tablet 40 mg PO HS RF: 0 carvedilol 6.25 mg Tablet 6.25 mg PO BID RF: 0 trazodone 50 mg Tablet 50 mg PO HS PRN (Reason: Sleep) RF: 0 nitroglycerin [Nitrostat] 0.4 mg Tablet, Sublingual 0.4 mg sublingual UD PRN (Reason: Chest Pain) RF: 0 Allergy Relief (cetirizine) 10 mg Capsule 10 mg PO DAILY PRN (Reason: Congestion) RF: 0 omeprazole 20 mg Tablet,Delayed Release (Dr/Ec) 20 mg PO QAM RF: 0 oxybutynin chloride [Ditropan XL] 10 mg Tablet Extended Release 24hr 10 mg PO DAILY RF: 0 Discontinued aspirin [Aspir-81] 81 mg Tablet,Delayed Release (Dr/Ec) 81 mg PO QAM RF: 0 acetaminophen [Tylenol Arthritis] 650 mg Tablet Extended Release 1,300 mg PO Q12H RF: 0 olmesartan 20 mg Tablet 20 mg PO QAM RF: 0 Discharge Orders: Discharge Order (Routine); Ordered 04/22/20 Ordered By: Ronnell Tavarez Admission Data Admit Date/Time: 04/21/20 10:20 Attending Provider: Clinton Mcdermott Admit Provider: Clinton Mcdermott Primary Care Provider: Jazmin Mcadams Other Providers: Clinton Vera Other Interventions: Discharge Summary Assessment (RN) Last Done: 04/22/20 14:28
== END 2020-04-22 15:51 | disposition home health service (06) ==
LOC: 3E 05:38 → ASU 05:38